=== PATIENT | female | born 1960 | race Caucasian/White ===

== ENCOUNTER 2016-12-30 07:26 | Day surgery (SDC) | payer OTHER ==
[~2016-12-30 07:26] MED LIST: MOBIC7.5 M2 PO; SAVELLA50 M1 PO; XANAX0.5 M1 PO; ZEBETA10 M1 PO
[2016-12-31] MEDS ORDERED: PERCOCET 5-3251 EACH PO (04:38)
[2016-12-31] MEDS ORDERED: VISTARIL50 M1 PO (10:54)
== END 2016-12-31 11:15 ==
LOC: WSU 07:26 → SHSB 07:30 → ORW 08:53 → PACU 10:27 → OBGF 11:15
PROC: 0UT94ZZ Resection of Uterus, Percutaneous Endoscopic Approach (ICD-10-PCS; principal; 2016-12-30)
PROC: 0UTC4ZZ Resection of Cervix, Percutaneous Endoscopic Approach (ICD-10-PCS; 2016-12-30)
PROC: 0UT04ZZ Resection of Right Ovary, Percutaneous Endoscopic Approach (ICD-10-PCS; 2016-12-30)
PROC: 0UT74ZZ Resection of Bilateral Fallopian Tubes, Percutaneous Endoscopic Approach (ICD-10-PCS; 2016-12-30)
PROC: 8E0W4CZ Robotic Assisted Procedure of Trunk Region, Percutaneous Endoscopic Approach (ICD-10-PCS; 2016-12-30)
DX: N92.1 Excessive and frequent menstruation with irregular cycle (principal); N85.8 Other specified noninflammatory disorders of uterus; N73.6 Female pelvic peritoneal adhesions (postinfective); F41.9 Anxiety disorder, unspecified; F32.9 Major depressive disorder, single episode, unspecified; M79.7 Fibromyalgia; Z79.899 Other long term (current) drug therapy; Z98.890 Other specified postprocedural states
CPT/HCPCS: J0690; J7030; J7121